=== PATIENT | male | born 1990 | race Caucasian/White ===

== ENCOUNTER 2019-07-28 12:58 | Emergency (ER) | payer BC ==
[2019-07-28] MEDS: Ondansetron 4 MG/2 ML SDV IVPUSH ONE (13:47)
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
[2019-07-28 14:07] LABS: CHLORIDE,CL 98 mEq/L (98-106); SODIUM,NA 137 mEq/L (136-145)
[2019-07-28] MEDS: Sodium Chloride 0.9% 1,000 ML IV SCH (14:23)
[2019-07-28] MEDS: Ondansetron 4 MG/2 ML SDV ONE (14:48)
[2019-07-28] MEDS: Ondansetron 4 MG/2 ML SDV IVPUSH STA (14:54)
[2019-07-28] MEDS: Iopamidol 755 Mg/ML 100 ML Bottle IVPUSH ONE (14:54)
[2019-07-28] MEDS: Diphtheria,Pertussis(Acell),Tetanus Vaccine 0.5 ML Syringe IM ONE (15:25)
[2019-07-28] MEDS: cefTRIAXone 2 GM Vial IVPUSH ONE (15:35)
[2019-07-28 17:27] VITALS: BP 128/81; PULSE 86
== END 2019-07-28 16:33 ==
LOC: CC.ED 12:58
DX: S06.0X1A Concussion with loss of consciousness of 30 minutes or less, initial encounter (principal); S02.109A Fracture of base of skull, unspecified side, initial encounter for closed fracture; S36.039A Unspecified laceration of spleen, initial encounter; S80.812A Abrasion, left lower leg, initial encounter; S00.412A Abrasion of left ear, initial encounter; Z23 Encounter for immunization; V29.9XXA Motorcycle rider (driver) (passenger) injured in unspecified traffic accident, initial encounter
CPT/HCPCS: 36415; 70450; 71260; 72125; 74177; 80053; 81001; 82150; 83605; 85025; 85610; 90471; 90715; 93005; 96361; 96374; 96375; 96376; 99285; J0696; J2270; J2405; J7030; Q9967